=== PATIENT | female | born 1980 | race Two or more races ===

== ENCOUNTER 2022-02-28 01:30 | Emergency (ER) | payer MEDICAID, BC ==
[~2022-02-28] VITALS: Ht 170.2 cm; Wt 80.0 kg
[2022-02-28] MEDS ORDERED: SODIUM CHLORIDE 0.9% 1,000 ML IV ONE (03:15)
[2022-02-28] MEDS ORDERED: FAMOTIDINE 20MG/2ML VIAL IV ONE (03:15)
[2022-02-28] MEDS ORDERED: ONDANSETRON HCL 4MG/2ML INJ IV ONE (03:15)
[2022-02-28 03:36] LABS: BASOPHILS % 0.5 % (0.0-2.0); EOSINOPHILS % 0.1 % (0.0-5.0); HEMATOCRIT. 39.1 % (36.0-48.0); HEMOGLOBIN. 13.1 g/dL (12.0-16.0); LYMPHOCYTES % 9.6 % (20.0-50.0); MEAN CORPUSCULAR HEMOGLOBIN 27.4 pg (28.0-32.0); MEAN CORPUSCULAR VOLUME 81.9 fL (81.0-99.0); MEAN PLATELET VOLUME 7.1 fl (7.4-10.4); NEUTROPHILS % 86.8 % (40.0-76.0); PLATELET 477 x1000/uL (130-400); RED BLOOD CELL COUNT 4.77 mill/uL (4.2-5.4); RED CELL DISTRIBUTION WIDTH 18.5 % (11.6-14.6)
[2022-02-28 03:46] LABS: CHLORIDE 100 mEq/L (98-107)
[2022-02-28 03:52] LABS: ETHANOL BLOOD 259 mg/dL
[2022-02-28] MEDS ORDERED: NAPR-681 PO (04:22)
[2022-02-28] MEDS ORDERED: ONDA4TAB11 PO (04:22)
[2022-02-28] MEDS ORDERED: ONDANSETRON HCL 4MG/2ML INJ IV STA (04:26)
[2022-02-28] MEDS ORDERED: KETOROLAC 30MG/ML VIAL IV STA (04:26)
[2022-02-28 05:06] VITALS: BP 138/95
[2022-02-28] MEDS ORDERED: MAGNESIUM/ALUMINUM HYDROXIDE/SIMETHICONE 30ML UDC PO STA (05:22)
[2022-02-28] MEDS ORDERED: METOCLOPRAMIDE HCL 10MG/2ML VIAL IV STA (05:22)
[2022-02-28] MEDS ORDERED: ACETAMINOPHEN 325MG TABLET PO STA (05:22)
== END 2022-02-28 05:31 | disposition home or self-care (01) ==
LOC: ER 01:30
DX: K29.00 Acute gastritis without bleeding (principal); I10 Essential (primary) hypertension; F10.10 Alcohol abuse, uncomplicated; Y90.8 Blood alcohol level of 240 mg/100 ml or more; Z88.5 Allergy status to narcotic agent
CPT/HCPCS: 36415; 80053; 80320; 83690; 85025; 96361; 96374; 96375; 96376; 99284; J1885; J2405; J3490; J7030; G0480